=== PATIENT | male | born 1970 | race Caucasian/White ===

== ENCOUNTER 2018-06-04 07:02 | Emergency (ER) | payer OTHER ==
[2018-06-04 07:15] VITALS: BP 120/76
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
[2018-06-04] MEDS ORDERED: Amoxicillin PO (*) 500 MG CAP PO ONE (07:55)
[2018-06-04] MEDS ORDERED: predniSONE TAB* 20 MG PO ONE (07:55)
[2018-06-04] MEDS ORDERED: Albuterol HFA INHALER* 8 gm MDI INH ONE (07:56)
== END 2018-06-04 08:09 | disposition home or self-care (01) ==
LOC: UCCORT 07:02
DX: R04.2 Hemoptysis (principal); J20.9 Acute bronchitis, unspecified
CPT/HCPCS: 71046; 99213; A9270-GY; G0463; J7512